=== PATIENT | male | born 1970 | race Caucasian/White ===

== ENCOUNTER 2021-06-20 11:34 | Emergency (ER) | payer OTHER | END 2021-06-20 15:40 | disposition home or self-care (01) | LOC: ER1 11:34 | DX: R07.81 Pleurodynia (principal); J90 Pleural effusion, not elsewhere classified; E11.9 Type 2 diabetes mellitus without complications; Z79.84 Long term (current) use of oral hypoglycemic drugs; F17.210 Nicotine dependence, cigarettes, uncomplicated | CPT/HCPCS: 71046; 99283 ==

== ENCOUNTER → 2021-08-24 | Outpatient (CLI) | payer OTHER | LOC: OR 07:30 → RAD 09:00 | DX: M54.50 Low back pain, unspecified (principal); M54.6 Pain in thoracic spine; S22.089A Unspecified fracture of T11-T12 vertebra, initial encounter for closed fracture; M48.04 Spinal stenosis, thoracic region | CPT/HCPCS: 72129; 72132; Q9966 ==